=== PATIENT | female | born 1970 | race Caucasian/White ===

== ENCOUNTER 2022-06-16 14:04 | Inpatient (IN) | payer OTHER ==
[2022-06-16 17:44] VITALS: BMI 27.1
[2022-06-16] MEDS ORDERED: MAGNESIUM HYDROX 2400MG/30ML ORAL SUSPENSION 30 ML CUP PO PRN (18:37)
[2022-06-16] MEDS ORDERED: BENZOCAINE/MENTHOL (CHLORASEPTIC ) LOZENGE MM PRN (18:37)
[2022-06-16] MEDS ORDERED: MAGNESIUM CITRATE 300 ML BOTTLE PO PRN (18:37)
[2022-06-16] MEDS ORDERED: BISMUTH SUBSALICYLATE 524 MG/30 ML PO PRN (18:37)
[2022-06-16] MEDS ORDERED: MAG HYDROX/AL HYDROX/SIMETH 30 ML UNIT-DOSE CUP PO PRN (18:37)
[2022-06-16] MEDS ORDERED: ONDANSETRON *ODT* 4 MG TABLET SL PRN (18:37)
[2022-06-16] MEDS ORDERED: DICYCLOMINE HCL 10 MG CAPSULE PO PRN (18:37)
[2022-06-16] MEDS ORDERED: ACETAMINOPHEN 325 MG TABLET (FP) PO PRN ×2 (18:37)
[2022-06-16] MEDS ORDERED: LOPERAMIDE HCL 2 MG CAPSULE PO PRN (18:37)
[2022-06-16] MEDS ORDERED: IBUPROFEN 400 MG TABLET (FP) PO PRN (18:37)
[2022-06-16] MEDS: NICOTINE 10 MG CARTRIDGE (INHALER) IH PRN (19:15)
[2022-06-16] MEDS: LIDOCAINE 5% TOPICAL PATCH TP SCH (19:45)
[2022-06-16] MEDS ORDERED: QUEtiapine FUMARATE 100 MG TABLET (FP) PO ONE (22:00)
[2022-06-16] MEDS ORDERED: ARIPiprazole 5 MG TABLET PO ONE (22:00)
[2022-06-16] MEDS: MELATONIN 5 MG TABLETS PO SCH (22:08)
[2022-06-16] MEDS: THIAMINE HCL 100 MG TABLET (FP) PO SCH (22:08)
[2022-06-16] MEDS: hydrOXYzine PAMOATE 25 MG CAPSULE (FP) PO SCH (22:08)
[2022-06-16] MEDS: METHOCARBAMOL 500 MG TABLET PO PRN (22:09)
[2022-06-16] MEDS: IBUPROFEN 600 MG TABLET (FP) PO PRN (22:10)
[2022-06-16] MEDS: LIDOCAINE PATCH REMOVAL MC SCH (22:11)
[2022-06-17] MEDS: METHOCARBAMOL 500 MG TABLET PO PRN ×3 (06:11→22:21)
[2022-06-17] MEDS: hydrOXYzine PAMOATE 25 MG CAPSULE (FP) PO SCH ×5 (06:11→22:20)
[2022-06-17] MEDS: IBUPROFEN 600 MG TABLET (FP) PO PRN (06:12)
[2022-06-17 06:39] VITALS: RESP 18
[2022-06-17] MEDS ORDERED: NIFEdipine E.R. 30 MG TABLET PO SCH (10:00)
[2022-06-17] MEDS ORDERED: PRENATAL VITAMINS W/ FOLIC ACID TABLET (FP) PO SCH (10:00)
[2022-06-17] MEDS ORDERED: NICOTINE 7 MG/24 HOURS TOPICAL PATCH TD SCH (10:00)
[2022-06-17] MEDS: LIDOCAINE 5% TOPICAL PATCH TP SCH (10:26)
[2022-06-17] MEDS: NICOTINE 10 MG CARTRIDGE (INHALER) IH PRN ×2 (10:27→15:40)
[2022-06-17] MEDS: cloNIDine HCL 0.1 MG TABLET PO PRN ×2 (15:31→22:20)
[2022-06-17 17:44] VITALS: TEMP 97.5
[2022-06-17] MEDS ORDERED: QUEtiapine FUMARATE 100 MG TABLET (FP) PO SCH (22:00)
[2022-06-17] MEDS: MELATONIN 5 MG TABLETS PO SCH (22:20)
[2022-06-17] MEDS: THIAMINE HCL 100 MG TABLET (FP) PO SCH (22:20)
[2022-06-17] MEDS: LIDOCAINE PATCH REMOVAL MC SCH (22:23)
[2022-06-17 22:54] VITALS: BP 139/110; PULSE 97
[2022-06-18] MEDS ORDERED: ARIPiprazole 5 MG TABLET PO SCH (10:00)
== END 2022-06-17 22:28 | disposition other institution (70) | DRG 773 ==
LOC: YASAS 14:04 → UNDOADMIN 18:42 → Y3N 18:42
PROVIDERS: ADMIT Allergy & Immunology; ATTEND Surgery
PROC: HZ2ZZZZ Detoxification Services for Substance Abuse Treatment (ICD-10-PCS; principal; 2022-06-16)
DX: F11.23 Opioid dependence with withdrawal (principal); F17.210 Nicotine dependence, cigarettes, uncomplicated; F20.9 Schizophrenia, unspecified; F31.9 Bipolar disorder, unspecified; F19.282 Other psychoactive substance dependence with psychoactive substance-induced sleep disorder; I10 Essential (primary) hypertension; J45.40 Moderate persistent asthma, uncomplicated
CPT/HCPCS: C9803-CS; U0003; U0005

== ENCOUNTER 2022-06-17 18:42 | Inpatient (IN) | payer OTHER ==
[2022-06-17] MEDS ORDERED: MAG HYDROX/AL HYDROX/SIMETH 30 ML UNIT-DOSE CUP PO PRN (22:56)
[2022-06-17] MEDS ORDERED: guaiFENesin 200 MG/10 ML 10 ML UNIT-DOSE CUPS PO PRN (22:56)
[2022-06-17] MEDS ORDERED: MAGNESIUM CITRATE 300 ML BOTTLE PO PRN (22:56)
[2022-06-17] MEDS ORDERED: BENZOCAINE/MENTHOL (CHLORASEPTIC ) LOZENGE MM PRN (22:56)
[2022-06-17] MEDS ORDERED: LOPERAMIDE HCL 2 MG CAPSULE PO PRN (22:56)
[2022-06-17] MEDS ORDERED: MAGNESIUM HYDROX 2400MG/30ML ORAL SUSPENSION 30 ML CUP PO PRN (22:56)
[2022-06-17] MEDS ORDERED: P-EPHED 60MG/TRIPROLIDI 2.5MG TABLET PO PRN (22:56)
[2022-06-17] MEDS ORDERED: cloNIDine HCL 0.1 MG TABLET PO ONE (23:10)
[2022-06-17] MEDS ORDERED: ALBUTEROL SO4 0.083% IH SOL 2.5 MG/3 ML VIAL.NEB. NEB PRN (23:16)
[2022-06-17] MEDS: MELATONIN 5 MG TABLETS PO PRN (23:32)
[2022-06-17] MEDS: LIDOCAINE PATCH REMOVAL MC SCH (23:36)
[2022-06-18] MEDS: hydrOXYzine PAMOATE 25 MG CAPSULE (FP) PO PRN ×4 (06:47→21:21)
[2022-06-18] MEDS ORDERED: METHIMAZOLE 10 MG TABLET PO SCH (10:00)
[2022-06-18 11:01] LABS: HEMATOCRIT 42.3 % (32.4-45.2); HEMOGLOBIN 13.6 GM/dL (10.7-15.3); MCH 29.7 pg (25.7-33.7); MCHC 32.3 g/dl (32.0-36.0); MEAN CELL VOLUME 92.1 fl (80-96); PLATELET COUNT 386 10^3/uL (134-434); RBC 4.59 M/mm3 (3.60-5.2); RDW 14.1 % (11.6-15.6); WHITE BLOOD COUNT 7.8 K/mm3 (4.0-10.0)
[2022-06-18] MEDS: PRENATAL VITAMINS W/ FOLIC ACID TABLET (FP) PO SCH (11:06)
[2022-06-18] MEDS: LIDOCAINE 5% TOPICAL PATCH TP SCH (11:06)
[2022-06-18] MEDS: IBUPROFEN 400 MG TABLET (FP) PO PRN ×2 (11:07→21:23)
[2022-06-18 11:19] LABS: ALBUMIN 3.4 g/dl (3.4-5.0); BLOOD UREA NITROGEN 14.8 mg/dL (7-18)
[2022-06-18 11:22] LABS: CREATININE 0.5 mg/dL (0.55-1.3)
[2022-06-18 11:34] LABS: BILIRUBIN,TOTAL 0.3 mg/dL (0.2-1)
[2022-06-18] MEDS: cloNIDine HCL 0.1 MG TABLET PO PRN ×2 (14:02→18:54)
[2022-06-18] MEDS: NICOTINE 10 MG CARTRIDGE (INHALER) IH PRN (15:02)
[2022-06-18] MEDS: NIFEdipine E.R. 30 MG TABLET PO SCH ×2 (15:03→16:33)
[2022-06-18] MEDS: LIDOCAINE PATCH REMOVAL MC SCH (21:19)
[2022-06-18] MEDS: QUEtiapine FUMARATE 100 MG TABLET (FP) PO SCH (21:19)
[2022-06-18] MEDS: THIAMINE HCL 100 MG TABLET (FP) PO SCH (21:21)
[2022-06-18] MEDS: MELATONIN 5 MG TABLETS PO PRN (21:21)
[2022-06-19] MEDS: cloNIDine HCL 0.1 MG TABLET PO PRN ×2 (06:41→21:19)
[2022-06-19] MEDS: LIDOCAINE 5% TOPICAL PATCH TP SCH (11:11)
[2022-06-19] MEDS: PRENATAL VITAMINS W/ FOLIC ACID TABLET (FP) PO SCH (11:12)
[2022-06-19] MEDS: NIFEdipine E.R. 30 MG TABLET PO SCH (11:13)
[2022-06-19] MEDS: hydrOXYzine PAMOATE 25 MG CAPSULE (FP) PO PRN ×3 (11:13→21:19)
[2022-06-19] MEDS ORDERED: cloNIDine HCL 0.1 MG TABLET PO ONE (13:20)
[2022-06-19] MEDS: ACETAMINOPHEN 325 MG TABLET (FP) PO PRN (13:21)
[2022-06-19] MEDS: METHIMAZOLE 10 MG TABLET PO SCH ×2 (14:27→21:56)
[2022-06-19] MEDS: NICOTINE 10 MG CARTRIDGE (INHALER) IH PRN (17:38)
[2022-06-19] MEDS: QUEtiapine FUMARATE 100 MG TABLET (FP) PO SCH (21:19)
[2022-06-19] MEDS: ARIPiprazole 5 MG TABLET PO SCH (21:19)
[2022-06-19] MEDS: LIDOCAINE PATCH REMOVAL MC SCH (21:19)
[2022-06-19] MEDS: THIAMINE HCL 100 MG TABLET (FP) PO SCH (21:20)
[2022-06-19] MEDS: MELATONIN 5 MG TABLETS PO PRN (23:16)
[2022-06-19] MEDS: IBUPROFEN 400 MG TABLET (FP) PO PRN (23:16)
[2022-06-20] MEDS: METHIMAZOLE 10 MG TABLET PO SCH ×3 (06:31→21:56)
[2022-06-20] MEDS: cloNIDine HCL 0.1 MG TABLET PO PRN ×2 (06:32→20:33)
[2022-06-20 07:36] VITALS: RESP 18
[2022-06-20] MEDS: PRENATAL VITAMINS W/ FOLIC ACID TABLET (FP) PO SCH (10:55)
[2022-06-20] MEDS: LIDOCAINE 5% TOPICAL PATCH TP SCH (10:55)
[2022-06-20] MEDS: NIFEdipine E.R. 30 MG TABLET PO SCH (10:56)
[2022-06-20] MEDS: IBUPROFEN 400 MG TABLET (FP) PO PRN (10:57)
[2022-06-20] MEDS: hydrOXYzine PAMOATE 25 MG CAPSULE (FP) PO PRN ×3 (12:35→21:57)
[2022-06-20] MEDS ORDERED: BUPRENORPHINE/NALOXONE 2 MG/0.5 MG FILM PACKET SL ONE (14:02)
[2022-06-20] MEDS: HYDROCHLOROTHIAZIDE 25 MG TABLET (FP) PO SCH (14:27)
[2022-06-20] MEDS: BUPRENORPHINE/NALOXONE 2 MG/0.5 MG FILM PACKET SL SCH (14:53)
[2022-06-20] MEDS: ACETAMINOPHEN 325 MG TABLET (FP) PO PRN (18:35)
[2022-06-20] MEDS: ARIPiprazole 5 MG TABLET PO SCH (21:56)
[2022-06-20] MEDS: QUEtiapine FUMARATE 100 MG TABLET (FP) PO SCH (21:56)
[2022-06-20] MEDS: MELATONIN 5 MG TABLETS PO PRN (21:57)
[2022-06-20] MEDS: THIAMINE HCL 100 MG TABLET (FP) PO SCH (21:58)
[2022-06-20] MEDS: LIDOCAINE PATCH REMOVAL MC SCH (21:58)
[2022-06-21] MEDS: hydrOXYzine PAMOATE 25 MG CAPSULE (FP) PO PRN ×4 (04:15→22:17)
[2022-06-21] MEDS: cloNIDine HCL 0.1 MG TABLET PO PRN ×2 (05:40→22:16)
[2022-06-21] MEDS: METHIMAZOLE 10 MG TABLET PO SCH ×3 (05:40→22:16)
[2022-06-21] MEDS: PRENATAL VITAMINS W/ FOLIC ACID TABLET (FP) PO SCH (10:23)
[2022-06-21] MEDS: LIDOCAINE 5% TOPICAL PATCH TP SCH (10:23)
[2022-06-21] MEDS: HYDROCHLOROTHIAZIDE 25 MG TABLET (FP) PO SCH (10:24)
[2022-06-21] MEDS: IBUPROFEN 400 MG TABLET (FP) PO PRN (10:25)
[2022-06-21] MEDS: BUPRENORPHINE/NALOXONE 2 MG/0.5 MG FILM PACKET SL SCH (10:26)
[2022-06-21] MEDS: NIFEdipine E.R. 30 MG TABLET PO SCH (10:26)
[2022-06-21] MEDS: NICOTINE 10 MG CARTRIDGE (INHALER) IH PRN (12:44)
[2022-06-21] MEDS ORDERED: BUPRENORPHINE/NALOXONE 2 MG/0.5 MG FILM PACKET SL ONE (18:00)
[2022-06-21] MEDS: ARIPiprazole 5 MG TABLET PO SCH (22:15)
[2022-06-21] MEDS: QUEtiapine FUMARATE 100 MG TABLET (FP) PO SCH (22:29)
[2022-06-21] MEDS: LIDOCAINE PATCH REMOVAL MC SCH (22:29)
[2022-06-21] MEDS: THIAMINE HCL 100 MG TABLET (FP) PO SCH (22:29)
[2022-06-22] MEDS: hydrOXYzine PAMOATE 25 MG CAPSULE (FP) PO PRN ×4 (02:22→21:18)
[2022-06-22] MEDS: cloNIDine HCL 0.1 MG TABLET PO PRN ×2 (05:43→21:17)
[2022-06-22] MEDS: METHIMAZOLE 10 MG TABLET PO SCH ×3 (05:43→21:16)
[2022-06-22] MEDS ORDERED: ALBUTEROL SO4 0.083% IH SOL 2.5 MG/3 ML VIAL.NEB. NEB PRN (10:05)
[2022-06-22] MEDS: IBUPROFEN 400 MG TABLET (FP) PO PRN (11:15)
[2022-06-22] MEDS: HYDROCHLOROTHIAZIDE 25 MG TABLET (FP) PO SCH (11:15)
[2022-06-22] MEDS: NIFEdipine E.R. 30 MG TABLET PO SCH (11:15)
[2022-06-22] MEDS ORDERED: BUPRENORPHINE/NALOXONE 4 MG/1 MG FILM PACKET SL ONE (11:15)
[2022-06-22] MEDS: LIDOCAINE 5% TOPICAL PATCH TP SCH (11:17)
[2022-06-22] MEDS: PRENATAL VITAMINS W/ FOLIC ACID TABLET (FP) PO SCH (11:17)
[2022-06-22] MEDS: BUPRENORPHINE/NALOXONE 2 MG/0.5 MG FILM PACKET SL SCH (11:20)
[2022-06-22] MEDS: BUPRENORPHINE/NALOXONE 4 MG/1 MG FILM PACKET SL SCH (17:47)
[2022-06-22] MEDS: THIAMINE HCL 100 MG TABLET (FP) PO SCH (21:16)
[2022-06-22] MEDS: ARIPiprazole 5 MG TABLET PO SCH (21:16)
[2022-06-22] MEDS: QUEtiapine FUMARATE 100 MG TABLET (FP) PO SCH (21:16)
[2022-06-22] MEDS: MELATONIN 5 MG TABLETS PO PRN (21:31)
[2022-06-22] MEDS ORDERED: BUPRENORPHINE/NALOXONE 4 MG/1 MG FILM PACKET SL SCH (22:00)
[2022-06-22] MEDS: LIDOCAINE PATCH REMOVAL MC SCH (22:47)
[2022-06-23] MEDS: BUPRENORPHINE/NALOXONE 4 MG/1 MG FILM PACKET SL SCH (06:10)
[2022-06-23] MEDS: METHIMAZOLE 10 MG TABLET PO SCH ×3 (06:10→21:23)
[2022-06-23] MEDS ORDERED: BUPRENORPHINE/NALOXONE 2 MG/0.5 MG FILM PACKET SL ONE (09:57)
[2022-06-23] MEDS: PRENATAL VITAMINS W/ FOLIC ACID TABLET (FP) PO SCH (10:42)
[2022-06-23] MEDS: LIDOCAINE 5% TOPICAL PATCH TP SCH (10:42)
[2022-06-23] MEDS: NIFEdipine E.R. 30 MG TABLET PO SCH (10:43)
[2022-06-23] MEDS: HYDROCHLOROTHIAZIDE 25 MG TABLET (FP) PO SCH (10:43)
[2022-06-23] MEDS: cloNIDine HCL 0.1 MG TABLET PO PRN (14:28)
[2022-06-23] MEDS: NICOTINE 10 MG CARTRIDGE (INHALER) IH PRN (15:19)
[2022-06-23] MEDS: BUPRENORPHINE/NALOXONE 8 MG/2 MG FILM PACKET SL SCH (18:23)
[2022-06-23] MEDS: ACETAMINOPHEN 325 MG TABLET (FP) PO PRN (21:21)
[2022-06-23] MEDS: ARIPiprazole 5 MG TABLET PO SCH (21:21)
[2022-06-23] MEDS: QUEtiapine FUMARATE 100 MG TABLET (FP) PO SCH (21:21)
[2022-06-23] MEDS: THIAMINE HCL 100 MG TABLET (FP) PO SCH (21:21)
[2022-06-23] MEDS: LIDOCAINE PATCH REMOVAL MC SCH (21:24)
[2022-06-23] MEDS: MELATONIN 5 MG TABLETS PO PRN (21:24)
[2022-06-24] MEDS: BUPRENORPHINE/NALOXONE 8 MG/2 MG FILM PACKET SL SCH ×2 (06:18→18:08)
[2022-06-24] MEDS: METHIMAZOLE 10 MG TABLET PO SCH ×3 (06:19→21:17)
[2022-06-24] MEDS: PRENATAL VITAMINS W/ FOLIC ACID TABLET (FP) PO SCH (10:19)
[2022-06-24] MEDS: HYDROCHLOROTHIAZIDE 25 MG TABLET (FP) PO SCH (10:19)
[2022-06-24] MEDS: NIFEdipine E.R. 30 MG TABLET PO SCH (10:20)
[2022-06-24] MEDS: cloNIDine HCL 0.1 MG TABLET PO PRN (10:20)
[2022-06-24] MEDS: LIDOCAINE 5% TOPICAL PATCH TP SCH (10:21)
[2022-06-24] MEDS: IBUPROFEN 400 MG TABLET (FP) PO PRN (14:49)
[2022-06-24] MEDS: ARIPiprazole 5 MG TABLET PO SCH (21:16)
[2022-06-24] MEDS: QUEtiapine FUMARATE 100 MG TABLET (FP) PO SCH (21:16)
[2022-06-24] MEDS: hydrOXYzine PAMOATE 25 MG CAPSULE (FP) PO PRN (21:17)
[2022-06-24] MEDS: LIDOCAINE PATCH REMOVAL MC SCH (21:17)
[2022-06-24] MEDS: MELATONIN 5 MG TABLETS PO PRN (21:18)
[2022-06-24] MEDS: THIAMINE HCL 100 MG TABLET (FP) PO SCH (22:43)
[2022-06-25] MEDS: METHIMAZOLE 10 MG TABLET PO SCH ×3 (06:07→21:47)
[2022-06-25] MEDS: BUPRENORPHINE/NALOXONE 8 MG/2 MG FILM PACKET SL SCH ×2 (06:09→17:53)
[2022-06-25] MEDS: cloNIDine HCL 0.1 MG TABLET PO PRN ×2 (06:11→21:52)
[2022-06-25] MEDS: LIDOCAINE 5% TOPICAL PATCH TP SCH (10:44)
[2022-06-25] MEDS: HYDROCHLOROTHIAZIDE 25 MG TABLET (FP) PO SCH (10:44)
[2022-06-25] MEDS: PRENATAL VITAMINS W/ FOLIC ACID TABLET (FP) PO SCH (10:44)
[2022-06-25] MEDS: NIFEdipine E.R. 30 MG TABLET PO SCH (10:45)
[2022-06-25] MEDS: DOCUSATE SODIUM 100 MG CAPSULE (FP) PO PRN (14:08)
[2022-06-25] MEDS: hydrOXYzine PAMOATE 25 MG CAPSULE (FP) PO PRN ×2 (17:53→21:50)
[2022-06-25] MEDS: QUEtiapine FUMARATE 100 MG TABLET (FP) PO SCH (21:46)
[2022-06-25] MEDS: THIAMINE HCL 100 MG TABLET (FP) PO SCH (21:46)
[2022-06-25] MEDS: ARIPiprazole 5 MG TABLET PO SCH (21:46)
[2022-06-25] MEDS: LIDOCAINE PATCH REMOVAL MC SCH (21:47)
[2022-06-25] MEDS: ACETAMINOPHEN 325 MG TABLET (FP) PO PRN (21:50)
[2022-06-26] MEDS: hydrOXYzine PAMOATE 25 MG CAPSULE (FP) PO PRN ×4 (06:36→21:19)
[2022-06-26] MEDS: cloNIDine HCL 0.1 MG TABLET PO PRN (06:36)
[2022-06-26] MEDS: METHIMAZOLE 10 MG TABLET PO SCH ×3 (06:36→21:18)
[2022-06-26] MEDS: BUPRENORPHINE/NALOXONE 8 MG/2 MG FILM PACKET SL SCH ×2 (06:36→17:31)
[2022-06-26] MEDS: LIDOCAINE 5% TOPICAL PATCH TP SCH (10:43)
[2022-06-26] MEDS: HYDROCHLOROTHIAZIDE 25 MG TABLET (FP) PO SCH (10:43)
[2022-06-26] MEDS: PRENATAL VITAMINS W/ FOLIC ACID TABLET (FP) PO SCH (10:43)
[2022-06-26] MEDS: NIFEdipine E.R. 30 MG TABLET PO SCH (10:44)
[2022-06-26] MEDS: DOCUSATE SODIUM 100 MG CAPSULE (FP) PO PRN (13:00)
[2022-06-26] MEDS: QUEtiapine FUMARATE 100 MG TABLET (FP) PO SCH (21:17)
[2022-06-26] MEDS: LIDOCAINE PATCH REMOVAL MC SCH (21:17)
[2022-06-26] MEDS: MELATONIN 5 MG TABLETS PO PRN (21:17)
[2022-06-26] MEDS: ARIPiprazole 5 MG TABLET PO SCH (21:17)
[2022-06-26] MEDS: THIAMINE HCL 100 MG TABLET (FP) PO SCH (21:19)
[2022-06-27] MEDS: METHIMAZOLE 10 MG TABLET PO SCH ×3 (06:17→21:14)
[2022-06-27] MEDS: BUPRENORPHINE/NALOXONE 8 MG/2 MG FILM PACKET SL SCH ×2 (06:17→17:42)
[2022-06-27] MEDS: DOCUSATE SODIUM 100 MG CAPSULE (FP) PO PRN ×2 (07:02→21:13)
[2022-06-27] MEDS: hydrOXYzine PAMOATE 25 MG CAPSULE (FP) PO PRN ×3 (07:02→21:13)
[2022-06-27] MEDS: PRENATAL VITAMINS W/ FOLIC ACID TABLET (FP) PO SCH (10:05)
[2022-06-27] MEDS: NIFEdipine E.R. 30 MG TABLET PO SCH (10:06)
[2022-06-27] MEDS: LIDOCAINE 5% TOPICAL PATCH TP SCH (10:07)
[2022-06-27] MEDS: HYDROCHLOROTHIAZIDE 25 MG TABLET (FP) PO SCH (10:07)
[2022-06-27] MEDS: cloNIDine HCL 0.1 MG TABLET PO PRN ×2 (13:15→21:13)
[2022-06-27] MEDS: NICOTINE 10 MG CARTRIDGE (INHALER) IH PRN (18:06)
[2022-06-27] MEDS: ARIPiprazole 5 MG TABLET PO SCH (21:13)
[2022-06-27] MEDS: THIAMINE HCL 100 MG TABLET (FP) PO SCH (21:13)
[2022-06-27] MEDS: QUEtiapine FUMARATE 100 MG TABLET (FP) PO SCH (21:13)
[2022-06-27] MEDS: LIDOCAINE PATCH REMOVAL MC SCH (21:14)
[2022-06-27] MEDS: MELATONIN 5 MG TABLETS PO PRN (21:15)
[2022-06-28] MEDS: METHIMAZOLE 10 MG TABLET PO SCH ×3 (06:49→21:43)
[2022-06-28] MEDS: cloNIDine HCL 0.1 MG TABLET PO PRN (06:50)
[2022-06-28] MEDS: BUPRENORPHINE/NALOXONE 8 MG/2 MG FILM PACKET SL SCH ×2 (06:50→17:39)
[2022-06-28] MEDS: PRENATAL VITAMINS W/ FOLIC ACID TABLET (FP) PO SCH (10:02)
[2022-06-28] MEDS: LIDOCAINE 5% TOPICAL PATCH TP SCH (10:02)
[2022-06-28] MEDS: NIFEdipine E.R. 30 MG TABLET PO SCH (10:02)
[2022-06-28] MEDS: HYDROCHLOROTHIAZIDE 25 MG TABLET (FP) PO SCH (10:02)
[2022-06-28] MEDS: hydrOXYzine PAMOATE 25 MG CAPSULE (FP) PO PRN ×3 (10:03→21:14)
[2022-06-28] MEDS: NICOTINE 10 MG CARTRIDGE (INHALER) IH PRN (19:20)
[2022-06-28] MEDS: MELATONIN 5 MG TABLETS PO PRN (21:14)
[2022-06-28] MEDS: THIAMINE HCL 100 MG TABLET (FP) PO SCH (21:14)
[2022-06-28] MEDS: QUEtiapine FUMARATE 100 MG TABLET (FP) PO SCH (21:14)
[2022-06-28] MEDS: ARIPiprazole 5 MG TABLET PO SCH (21:14)
[2022-06-28] MEDS: LIDOCAINE PATCH REMOVAL MC SCH (21:15)
[2022-06-29] MEDS: hydrOXYzine PAMOATE 25 MG CAPSULE (FP) PO PRN ×2 (03:23→21:30)
[2022-06-29] MEDS: BUPRENORPHINE/NALOXONE 8 MG/2 MG FILM PACKET SL SCH ×2 (05:54→18:05)
[2022-06-29] MEDS: METHIMAZOLE 10 MG TABLET PO SCH ×3 (05:54→21:30)
[2022-06-29] MEDS: NIFEdipine E.R. 30 MG TABLET PO SCH (09:52)
[2022-06-29] MEDS: HYDROCHLOROTHIAZIDE 25 MG TABLET (FP) PO SCH (09:52)
[2022-06-29] MEDS: PRENATAL VITAMINS W/ FOLIC ACID TABLET (FP) PO SCH (09:52)
[2022-06-29] MEDS: LIDOCAINE 5% TOPICAL PATCH TP SCH (09:53)
[2022-06-29] MEDS: DOCUSATE SODIUM 100 MG CAPSULE (FP) PO PRN ×2 (09:56→21:29)
[2022-06-29] MEDS: cloNIDine HCL 0.1 MG TABLET PO PRN (13:07)
[2022-06-29] MEDS: MELATONIN 5 MG TABLETS PO PRN (21:29)
[2022-06-29] MEDS: QUEtiapine FUMARATE 100 MG TABLET (FP) PO SCH (21:29)
[2022-06-29] MEDS: ARIPiprazole 5 MG TABLET PO SCH (21:29)
[2022-06-29] MEDS: SENNOSIDES 8.6MG TABLET (FP) PO PRN (21:29)
[2022-06-29] MEDS: LIDOCAINE PATCH REMOVAL MC SCH (21:30)
[2022-06-29] MEDS: THIAMINE HCL 100 MG TABLET (FP) PO SCH (21:31)
[2022-06-30] MEDS: BUPRENORPHINE/NALOXONE 8 MG/2 MG FILM PACKET SL SCH ×2 (06:06→17:18)
[2022-06-30] MEDS: METHIMAZOLE 10 MG TABLET PO SCH ×3 (06:06→21:23)
[2022-06-30] MEDS: cloNIDine HCL 0.1 MG TABLET PO PRN (06:07)
[2022-06-30] MEDS: LIDOCAINE 5% TOPICAL PATCH TP SCH (10:55)
[2022-06-30] MEDS: HYDROCHLOROTHIAZIDE 25 MG TABLET (FP) PO SCH (10:55)
[2022-06-30] MEDS: DOCUSATE SODIUM 100 MG CAPSULE (FP) PO PRN ×2 (10:55→21:22)
[2022-06-30] MEDS: PRENATAL VITAMINS W/ FOLIC ACID TABLET (FP) PO SCH (10:55)
[2022-06-30] MEDS: NIFEdipine E.R. 30 MG TABLET PO SCH (10:56)
[2022-06-30] MEDS: NICOTINE 10 MG CARTRIDGE (INHALER) IH PRN (20:02)
[2022-06-30] MEDS: QUEtiapine FUMARATE 100 MG TABLET (FP) PO SCH (21:22)
[2022-06-30] MEDS: SENNOSIDES 8.6MG TABLET (FP) PO PRN (21:22)
[2022-06-30] MEDS: ARIPiprazole 5 MG TABLET PO SCH (21:22)
[2022-06-30] MEDS: MELATONIN 5 MG TABLETS PO PRN (21:23)
[2022-06-30] MEDS: hydrOXYzine PAMOATE 25 MG CAPSULE (FP) PO PRN (21:25)
[2022-06-30] MEDS: THIAMINE HCL 100 MG TABLET (FP) PO SCH (22:50)
[2022-06-30] MEDS: LIDOCAINE PATCH REMOVAL MC SCH (22:50)
[2022-07-01] MEDS: BUPRENORPHINE/NALOXONE 8 MG/2 MG FILM PACKET SL SCH (06:25)
[2022-07-01] MEDS: METHIMAZOLE 10 MG TABLET PO SCH (06:25)
[2022-07-01 08:17] VITALS: BP 155/96; PULSE 104; TEMP 97.2
[2022-07-01] MEDS: PRENATAL VITAMINS W/ FOLIC ACID TABLET (FP) PO SCH (09:38)
[2022-07-01] MEDS: LIDOCAINE 5% TOPICAL PATCH TP SCH (09:38)
[2022-07-01] MEDS: HYDROCHLOROTHIAZIDE 25 MG TABLET (FP) PO SCH (09:38)
[2022-07-01] MEDS: hydrOXYzine PAMOATE 25 MG CAPSULE (FP) PO PRN (09:39)
[2022-07-01] MEDS: DOCUSATE SODIUM 100 MG CAPSULE (FP) PO PRN (09:40)
[2022-07-01] MEDS: NIFEdipine E.R. 30 MG TABLET PO SCH (09:41)
[2022-07-01] MEDS: NICOTINE 10 MG CARTRIDGE (INHALER) IH PRN (09:44)
== END 2022-07-01 10:30 | disposition home or self-care (01) | DRG 772 ==
LOC: YASAS 18:42 → Y5N 18:44
PROVIDERS: ADMIT Allergy & Immunology; ATTEND Psychiatry & Neurology Psychiatry
PROC: HZ42ZZZ Group Counseling for Substance Abuse Treatment, Cognitive-Behavioral (ICD-10-PCS; principal; 2022-06-17)
DX: F11.20 Opioid dependence, uncomplicated (principal); F17.210 Nicotine dependence, cigarettes, uncomplicated; F19.282 Other psychoactive substance dependence with psychoactive substance-induced sleep disorder; F31.9 Bipolar disorder, unspecified; F20.9 Schizophrenia, unspecified; I10 Essential (primary) hypertension; J45.40 Moderate persistent asthma, uncomplicated; E05.90 Thyrotoxicosis, unspecified without thyrotoxic crisis or storm; R76.8 Other specified abnormal immunological findings in serum; Z86.19 Personal history of other infectious and parasitic diseases
CPT/HCPCS: 36415; 80053; 82962; 84443; 85027; 86593; 86780

== ENCOUNTER 2023-02-09 15:41 | Inpatient (IN) | payer OTHER ==
[2023-02-09] MEDS ORDERED: ALBUTEROL SO4 HFA INHALER IH ONE (16:01)
[2023-02-09 16:07] VITALS: BMI 32.5
[2023-02-09] MEDS ORDERED: cloNIDine HCL 0.1 MG TABLET PO ONE ×2 (16:08→16:56)
[2023-02-09] MEDS ORDERED: MAG HYDROX/AL HYDROX/SIMETH 30 ML UNIT-DOSE CUP PO PRN (16:56)
[2023-02-09] MEDS ORDERED: IBUPROFEN 400 MG TABLET (FP) PO PRN (16:56)
[2023-02-09] MEDS ORDERED: IBUPROFEN 600 MG TABLET (FP) PO PRN (16:56)
[2023-02-09] MEDS ORDERED: BUPRENORPHINE HCL 150 MCG, BUPRENORPHINE HCL 75 MCG BC PRN (16:56)
[2023-02-09] MEDS ORDERED: ACETAMINOPHEN 325 MG TABLET (FP) PO PRN (16:56)
[2023-02-09] MEDS ORDERED: NALOXONE HCL (KLOXXADO) 8 MG SPRAY NS PRN (16:56)
[2023-02-09] MEDS ORDERED: guaiFENesin 600 MG TABLET.ER (FP) PO PRN (16:56)
[2023-02-09] MEDS ORDERED: BENZOCAINE/MENTHOL (CHLORASEPTIC ) LOZENGE MM PRN (16:56)
[2023-02-09] MEDS ORDERED: BENZONATATE 200 MG CAPSULE PO PRN (16:56)
[2023-02-09] MEDS ORDERED: DICYCLOMINE HCL 10 MG CAPSULE PO PRN (16:56)
[2023-02-09] MEDS ORDERED: BISMUTH SUBSALICYLATE 524 MG/30 ML PO PRN (16:56)
[2023-02-09] MEDS ORDERED: MAGNESIUM HYDROX 2400MG/30ML ORAL SUSPENSION 30 ML CUP PO PRN (16:56)
[2023-02-09] MEDS ORDERED: POLYETHYLENE GLYCOL (HEALTHYLAX) 3350 17 GM PACKET PO PRN (16:56)
[2023-02-09] MEDS ORDERED: LOPERAMIDE HCL 2 MG CAPSULE PO PRN (16:56)
[2023-02-09] MEDS ORDERED: NALOXONE HCL 0.4 MG/ML VIAL IM PRN (16:56)
[2023-02-09] MEDS ORDERED: BUPRENORPHINE HCL 150 MCG, BUPRENORPHINE HCL 75 MCG BC ONE (16:56)
[2023-02-09] MEDS ORDERED: ONDANSETRON *ODT* 4 MG TABLET SL PRN (16:56)
[2023-02-09] MEDS: NICOTINE 14 MG/24 HOURS TOPICAL PATCH TD SCH (17:25)
[2023-02-09] MEDS: PRENATAL VITAMINS W/ FOLIC ACID TABLET (FP) PO SCH (17:25)
[2023-02-09] MEDS ORDERED: BUPRENORPHINE HCL 75 MCG FILM BC ONE (17:30)
[2023-02-09] MEDS ORDERED: cloNIDine HCL 0.1 MG TABLET ONE (17:30)
[2023-02-09] MEDS ORDERED: PRENATAL VITAMINS W/ FOLIC ACID TABLET (FP) PO ONE (17:30)
[2023-02-09] MEDS ORDERED: BUPRENORPHINE HCL 150 MCG FILM BC ONE (17:30)
[2023-02-09] MEDS ORDERED: NICOTINE 14 MG/24 HOURS TOPICAL PATCH TD ONE (17:30)
[2023-02-09] MEDS ORDERED: QUEtiapine FUMARATE 100 MG TABLET (FP) PO SCH (22:00)
[2023-02-09] MEDS: MELATONIN 5 MG TABLETS PO SCH (22:23)
[2023-02-09] MEDS: cloNIDine HCL 0.1 MG TABLET PO SCH (22:24)
[2023-02-09] MEDS: METHOCARBAMOL 500 MG TABLET PO PRN (22:24)
[2023-02-09] MEDS: SENNOSIDES 8.6MG TABLET (FP) PO SCH (22:25)
[2023-02-09] MEDS: THIAMINE HCL 100 MG TABLET (FP) PO SCH (22:25)
[2023-02-09] MEDS: DOCUSATE SODIUM 100 MG CAPSULE (FP) PO SCH (22:54)
[2023-02-09] MEDS: LIDOCAINE PATCH REMOVAL MC SCH (22:55)
[2023-02-10] MEDS ORDERED: BUPRENORPHINE HCL 150 MCG, BUPRENORPHINE HCL 75 MCG BC PRN
[2023-02-10] MEDS: DOCUSATE SODIUM 100 MG CAPSULE (FP) PO SCH ×3 (06:21→22:10)
[2023-02-10] MEDS: BUPRENORPHINE HCL 150 MCG, BUPRENORPHINE HCL 75 MCG BC SCH ×2 (06:24→17:41)
[2023-02-10] MEDS ORDERED: cloNIDine HCL 0.1 MG TABLET PO PRN (09:57)
[2023-02-10] MEDS: PRENATAL VITAMINS W/ FOLIC ACID TABLET (FP) PO SCH (09:58)
[2023-02-10] MEDS: NIFEdipine E.R. 30 MG TABLET PO SCH (09:58)
[2023-02-10] MEDS: HYDROCHLOROTHIAZIDE 25 MG TABLET (FP) PO SCH (09:58)
[2023-02-10] MEDS: LIDOCAINE 5% TOPICAL PATCH TP SCH (09:59)
[2023-02-10] MEDS: NICOTINE 14 MG/24 HOURS TOPICAL PATCH TD SCH (09:59)
[2023-02-10] MEDS: diazePAM 5 MG TABLET PO PRN (10:02)
[2023-02-10] MEDS: cloNIDine HCL 0.1 MG TABLET PO SCH (10:03)
[2023-02-10 11:43] LABS: HEMATOCRIT 36.8 % (32.4-45.2); HEMOGLOBIN 12.4 GM/dL (10.7-15.3); MCH 29.9 pg (25.7-33.7); MCHC 33.7 g/dl (32.0-36.0); MEAN CELL VOLUME 88.8 fl (80-96); MEAN PLT VOLUME 10.7 fl (7.5-11.1); PLATELET COUNT 207 10^3/uL (134-434); RBC 4.14 M/mm3 (3.60-5.2); RDW 14.2 % (11.6-15.6); WHITE BLOOD COUNT 8.8 K/mm3 (4.0-10.0)
[2023-02-10 11:59] LABS: POTASSIUM 4.2 mmol/L (3.5-5.1)
[2023-02-10 12:07] LABS: ALBUMIN 3.2 g/dl (3.4-5.0); CALCIUM 9.3 mg/dL (8.5-10.1)
[2023-02-10 12:08] LABS: BLOOD UREA NITROGEN 10.6 mg/dL (7-18)
[2023-02-10 12:10] LABS: CREATININE 0.6 mg/dL (0.55-1.3)
[2023-02-10 12:12] LABS: BILIRUBIN,TOTAL 0.3 mg/dL (0.2-1); TOT PROT 6.6 g/dl (6.4-8.2)
[2023-02-10] MEDS: hydrOXYzine PAMOATE 25 MG CAPSULE (FP) PO PRN ×2 (14:52→21:39)
[2023-02-10] MEDS ORDERED: ALBUTEROL SO4 HFA INHALER IH ONE (15:00)
[2023-02-10] MEDS: ALBUTEROL SO4 HFA INHALER IH PRN ×2 (15:15→22:10)
[2023-02-10] MEDS: cloNIDine HCL 0.1 MG TABLET PO PRN ×2 (17:40→22:08)
[2023-02-10] MEDS: QUEtiapine FUMARATE 100 MG TABLET (FP) PO SCH (22:08)
[2023-02-10] MEDS: LIDOCAINE PATCH REMOVAL MC SCH (22:10)
[2023-02-10] MEDS: THIAMINE HCL 100 MG TABLET (FP) PO SCH (22:10)
[2023-02-10] MEDS: MELATONIN 5 MG TABLETS PO SCH (22:11)
[2023-02-10] MEDS: SENNOSIDES 8.6MG TABLET (FP) PO SCH (22:13)
[2023-02-11] MEDS: DOCUSATE SODIUM 100 MG CAPSULE (FP) PO SCH ×3 (05:31→22:25)
[2023-02-11] MEDS: BUPRENORPHINE HCL 450 MCG FILM BC SCH ×2 (05:58→17:19)
[2023-02-11] MEDS: cloNIDine HCL 0.1 MG TABLET PO PRN ×3 (06:09→22:24)
[2023-02-11] MEDS: METHOCARBAMOL 500 MG TABLET PO PRN ×2 (06:09→22:24)
[2023-02-11] MEDS: NIFEdipine E.R. 30 MG TABLET PO SCH (10:03)
[2023-02-11] MEDS: diazePAM 5 MG TABLET PO PRN (10:03)
[2023-02-11] MEDS: HYDROCHLOROTHIAZIDE 25 MG TABLET (FP) PO SCH (10:03)
[2023-02-11] MEDS: ARIPiprazole 5 MG TABLET PO SCH (10:03)
[2023-02-11] MEDS: PRENATAL VITAMINS W/ FOLIC ACID TABLET (FP) PO SCH (10:03)
[2023-02-11] MEDS: LIDOCAINE 5% TOPICAL PATCH TP SCH (10:05)
[2023-02-11] MEDS: NICOTINE 14 MG/24 HOURS TOPICAL PATCH TD SCH (10:05)
[2023-02-11] MEDS: hydrOXYzine PAMOATE 25 MG CAPSULE (FP) PO PRN (15:04)
[2023-02-11] MEDS ORDERED: cloNIDine HCL 0.1 MG TABLET PO ONE (18:58)
[2023-02-11] MEDS: QUEtiapine FUMARATE 100 MG TABLET (FP) PO SCH (22:24)
[2023-02-11] MEDS: THIAMINE HCL 100 MG TABLET (FP) PO SCH (22:24)
[2023-02-11] MEDS: SENNOSIDES 8.6MG TABLET (FP) PO SCH (22:24)
[2023-02-11] MEDS: LIDOCAINE PATCH REMOVAL MC SCH (22:25)
[2023-02-11] MEDS: MELATONIN 5 MG TABLETS PO SCH (22:25)
[2023-02-12] MEDS: DOCUSATE SODIUM 100 MG CAPSULE (FP) PO SCH ×2 (06:00→14:20)
[2023-02-12] MEDS ORDERED: BUPRENORPHINE/NALOXONE 4 MG/1 MG FILM PACKET SL SCH (06:00)
[2023-02-12] MEDS: PRENATAL VITAMINS W/ FOLIC ACID TABLET (FP) PO SCH (10:24)
[2023-02-12] MEDS: hydrOXYzine PAMOATE 25 MG CAPSULE (FP) PO PRN (10:24)
[2023-02-12] MEDS: ARIPiprazole 5 MG TABLET PO SCH (10:24)
[2023-02-12] MEDS: METHOCARBAMOL 500 MG TABLET PO PRN (10:24)
[2023-02-12] MEDS: LIDOCAINE 5% TOPICAL PATCH TP SCH (10:24)
[2023-02-12] MEDS: HYDROCHLOROTHIAZIDE 25 MG TABLET (FP) PO SCH (10:24)
[2023-02-12] MEDS: NIFEdipine E.R. 30 MG TABLET PO SCH (10:24)
[2023-02-12] MEDS: NICOTINE 14 MG/24 HOURS TOPICAL PATCH TD SCH (10:24)
[2023-02-12] MEDS ORDERED: BUPRENORPHINE/NALOXONE 4 MG/1 MG FILM PACKET SL ONE (11:45)
[2023-02-12 12:29] VITALS: BP 164/106; PULSE 110; RESP 16; TEMP 98.4
[2023-02-12] MEDS ORDERED: diazePAM 5 MG TABLET PO SCH (13:00)
[2023-02-13] MEDS ORDERED: BUPRENORPHINE/NALOXONE 8 MG/2 MG FILM PACKET SL ONE (06:00)
== END 2023-02-12 15:15 | disposition left against medical advice (07) | DRG 770 ==
LOC: YASAS 15:41 → Y3N 17:22
PROVIDERS: ADMIT Allergy & Immunology; ATTEND Surgery
PROC: HZ2ZZZZ Detoxification Services for Substance Abuse Treatment (ICD-10-PCS; principal; 2023-02-09)
DX: F11.23 Opioid dependence with withdrawal (principal); F14.20 Cocaine dependence, uncomplicated; F17.210 Nicotine dependence, cigarettes, uncomplicated; F20.9 Schizophrenia, unspecified; F31.70 Bipolar disorder, currently in remission, most recent episode unspecified; F19.282 Other psychoactive substance dependence with psychoactive substance-induced sleep disorder; E03.9 Hypothyroidism, unspecified; I10 Essential (primary) hypertension; Z88.0 Allergy status to penicillin; Z91.018 Allergy to other foods
CPT/HCPCS: 36415; 80053; 85027; 86593; 86780; C9803-CS; U0003; U0005